=== PATIENT | female | born 1950 | race Caucasian/White ===

== ENCOUNTER 2019-03-11 11:05 | Emergency (ER) | payer MEDICARE ==
[~2019-03-11] VITALS: Ht 175.3 cm; Wt 53.7 kg
[2019-03-11 11:15] VITALS: BP 153/92
--- NOTE | 2019-03-11 11:15 | NUR ---
PT COMPLAINING IF GENERALISED ABD PAIN SINCE SINCE 8 DAYS, GETTING WORSE SINCE LAST NIGHT. HAS 1 EPISODE OF DIARRHEA THIS AM, WITH SLIGHT RED BLOOD IN STOOL. PER PT, HAS BLOOD EMESIS 3 DAYS AGO. PT HAS HX OF TUBAL LIGATION, CHOLESTEROL AND GERD 10 YRS AGO. PT COMPLAINING OF ABD PAIN 10 AT THIS TIME. PT TAKES LOPERAMIDE, CIPRO AND ZOFRAN AT HOME. PT ITALIAN SPEAKING ONLY. FAMILY PRESENT AT THE BEDSIDE. PT SEEN BY .
--- NOTE | 2019-03-11 11:27 | NUR ---
PT AMB TO BED 11
[2019-03-11] MEDS ORDERED: NACL 0.9% 1,000 ML IV SCH (12:21)
[2019-03-11] MEDS ORDERED: ONDANSETRON 4 MG/2 ML VIAL IVP ONE (12:25)
[2019-03-11] MEDS ORDERED: MORPHINE SULFATE 2 MG/ML SYR IVP ONE (12:25)
--- NOTE | 2019-03-11 12:34 | NUR ---
EKG COMPLETED AND HANDED DR. MATAMOROS.
[2019-03-11 12:43] LABS: BILIRUBIN,URINE NEGATIVE (NEGATIVE); BLOOD, URINE 1+ (NEGATIVE); COLOR,URINE YELLOW (YELLOW); LEUKOCYTE ESTERASE ,URINE TRACE (NEGATIVE); NITRITE, URINE NEGATIVE (NEGATIVE); UGLUCOSE NEGATIVE (NEGATIVE)
[2019-03-11 12:55] LABS: APPEARANCE,URINE SLIGHTLY HAZY (CLEAR)
[2019-03-11 13:04] LABS: RBC,URINE NONE SEEN /HPF (0-5); WBC,URINE 0-5 /HPF (0-5)
[2019-03-11 13:18] LABS: BASOPHILS % (AUTO) 0.3 % (0.0-2.0); EOSINOPHILS % (AUTO) 0.3 % (0.0-4.0); HEMATOCRIT 39.6 % (36-48); HEMOGLOBIN 13.2 g/dL (12.0-16.0); LYMPHOCYTES # (AUTO) 2.4 K/uL (2.5-16.5); LYMPHOCYTES % (AUTO) 29.8 % (20.5-51.1); MEAN CORPUSCULAR HEMOGLOBIN 31 pg (27-31); MEAN CORPUSCULAR HGB CONC 33 g/dL (33-37); MEAN CORPUSCULAR VOLUME 91.8 fL (80-94); MONOCYTES % (AUTO) 12.4 % (1.7-9.3); NEUTROPHILS # (AUTO) 4.7 K/uL (1.8-7.7); NEUTROPHILS % (AUTO) 57.2 % (42.2-75.2); PLATELET COUNT (AUTO) 217 K/uL (140-450); RED BLOOD CELL COUNT(AUTO) 4.31 MIL/uL (4.20-5.40); RED CELL DISTRIBUTION WIDTH 13.5 % (11.6-13.7); WHITE BLOOD COUNT (AUTO) 8.2 K/uL (4.8-10.8)
[2019-03-11 13:24] LABS: ANION GAP 13.2 (8-16); CARBON DIOXIDE 26.3 mmol/L (21-32); CHLORIDE 105 mmol/L (98-107); CREATININE 0.7 mg/dL (0.6-1.3); GLUCOSE 89 mg/dL (74-106); POTASSIUM 3.5 mmol/L (3.5-5.1); SODIUM SERUM 141 mmol/L (136-145); UREA NITROGEN, BLOOD 6 mg/dL (7-18)
[2019-03-11 13:43] LABS: ALBUMIN 3.6 g/dL (3.4-5.0); ASPARTATE AMINOTRANSFERASE 16 U/L (15-37); LIPASE 123 U/L (73-393); TOTAL BILIRUBIN 0.5 mg/dL (0.0-1.0)
--- NOTE | 2019-03-11 14:00 | NUR ---
PT REMAINS A&OX4, BREATHING EVEN AND UNLABORED, NSR ON MONITOR. PAIN DECREASED 2/10, NAUSEA DECREASED. NO VOMITING. DIARRHEA X 2 WHILE IN ED. PT ABLE TO AMBULATE TO [facility] AND BACK TO [facility] WITH STEADY GAIT. DENIES BLOOD IN STOOL. FAMILY AT BEDSIDE.
[2019-03-11 14:31] VITALS: BP 146/62
--- NOTE | 2019-03-11 14:35 | NUR ---
Patient discharged with v/s stable. Written and verbal after care instructions given and explained. Patient alert, oriented and verbalized understanding of instructions. Ambulatory with steady gait. All questions addressed prior to discharge. ID band removed. Patient advised to follow up with PMD. Rx of LOMOTIL AND ZOFRAN given. Patient educated on indication of medication including possible reaction and side effects. Opportunity to ask questions provided and answered. COPIES OF LABS AND CT GIVEN TO PT.
--- NOTE | 2019-03-11 14:36 | NUR ---
Chart checked and completed. The patient's care was reviewed and supervised by Joann Pierre RN.
== END 2019-03-11 14:35 | disposition home or self-care (01) ==
LOC: MED 11:05
DX: R11.2 Nausea with vomiting, unspecified (principal); R19.7 Diarrhea, unspecified; E78.00 Pure hypercholesterolemia, unspecified; Z98.51 Tubal ligation status; R10.84 Generalized abdominal pain; R03.0 Elevated blood-pressure reading, without diagnosis of hypertension
CPT/HCPCS: 36415; 74176; 80053; 81001; 83605; 83690; 85025; 87040; 87086; 93005; 96361; 96374; 96375; 99284; J2270; J2405; J7030

== ENCOUNTER 2023-03-31 23:40 | Emergency (ER) | payer MEDICARE, MEDICAID ==
[~2023-03-31] VITALS: Ht 152.4 cm; Wt 53.6 kg
[2023-03-31 23:45] VITALS: BP 163/90; PULSE 72; RESP 17; TEMP 97.9; O2SAT 99
--- NOTE | 2023-03-31 23:45 | NUR ---
to bed ambulatory
--- NOTE | 2023-04-01 00:17 | NUR ---
73 YO F BIB SELF C/O ABD PAIN AND PAIN WHEN URINATING. STATES PAIN 10/10 WHEN URINATING. PT STATES PAIN STARTED THIS MORNING AND BECAME WORSE THE NIGHT PROGRESSED. PT DENIES CP OR SOB. ON BEDSIDE PHOTOC[employer]YING [employer] SR 65. NKDA HIGH CHOLESTEROL
[2023-04-01] MEDS ORDERED: KETOROLAC 60 MG/2 ML VIAL IM ONE (00:30)
[2023-04-01] MEDS ORDERED: PHEN-1877 PO ×2 (00:39→00:49)
[2023-04-01] MEDS ORDERED: IBUP-2213 PO ×2 (00:39→00:49)
[2023-04-01] MEDS ORDERED: CIPR500T4 PO ×2 (00:39→00:49)
--- NOTE | 2023-04-01 00:50 | NUR ---
Patient discharged with v/s stable. Written and verbal after care instructions given and explained. Patient verbalized understanding. Ambulatory with steady gait. All questions addressed prior to discharge. Advised to follow up with PMD.
[2023-04-01 01:00] VITALS: O2SAT 99
== END 2023-04-01 00:50 | disposition home or self-care (01) ==
LOC: MED 23:40
DX: N39.0 Urinary tract infection, site not specified (principal); R30.0 Dysuria; R35.0 Frequency of micturition; K21.9 Gastro-esophageal reflux disease without esophagitis; Z79.899 Other long term (current) drug therapy
CPT/HCPCS: 81002; 96372; 99283; J1885